=== PATIENT | female | born 2000 | race Caucasian/White ===

== ENCOUNTER 2023-08-23 09:21 | Emergency (ER) | payer OTHER ==
[~2023-08-23] VITALS: Ht 165.1 cm; Wt 63.6 kg
[2023-08-23 09:41] VITALS: TEMP 98.6
[2023-08-23] MEDS ORDERED: IBUP-1492 PO (13:22)
[2023-08-23 13:36] VITALS: BP 98/65; PULSE 62; RESP 16
== END 2023-08-23 13:40 | disposition home or self-care (01) ==
LOC: EMS 09:21
DX: S93.402A Sprain of unspecified ligament of left ankle, initial encounter (principal); X58.XXXA Exposure to other specified factors, initial encounter; Y93.89 Activity, other specified; Y92.89 Other specified places as the place of occurrence of the external cause; Y99.8 Other external cause status
CPT/HCPCS: 29515; 99283

== ENCOUNTER 2024-06-05 12:36 | Emergency (ER) | payer BC, OTHER ==
[~2024-06-05] VITALS: Ht 162.6 cm; Wt 63.6 kg
[~2024-06-05 12:36] MED LIST: IBUP-1492 PO
[2024-06-05 12:56] VITALS: BP 121/64; PULSE 92; RESP 16; TEMP 99.2; O2SAT 100
[2024-06-05 13:44] LABS: COVID AG,FIA SOURCE NASAL SWAB
[2024-06-05 14:35] LABS: SARS-COV2 (COVID) ANTIGEN,FIA Positive (Negative)
== END 2024-06-05 15:24 | disposition home or self-care (01) ==
LOC: EMS 12:36
DX: U07.1 COVID-19 (principal)
CPT/HCPCS: 99283

== ENCOUNTER 2025-01-14 20:08 | Emergency (ER) | payer BC, OTHER ==
[~2025-01-14] VITALS: Ht 165.1 cm; Wt 67.3 kg
[2025-01-14 20:12] VITALS: TEMP 98.4
[2025-01-14 20:35] LABS: BASOPHILS % (AUTO) 0.5 % (0.0-2.0); EOSINOPHILS % (AUTO) 1.4 % (1.0-6.0); HEMATOCRIT 41.2 % (36-46); HEMOGLOBIN 13.9 g/dL (12.0-16.0); LYMPHOCYTES # (AUTO) 2.7 K/uL (1.0-4.8); LYMPHOCYTES % (AUTO) 36.5 % (22.0-44.0); MEAN CORPUSCULAR HGB CONC 33.9 G/dL (31.0-37.0); MEAN CORPUSCULAR VOLUME 94 fL (80-100); MONOCYTES # (AUTO) 0.4 K/uL (0.1-1.0); NEUTROPHILS # (AUTO) 4.1 K/uL (1.8-7.7); NEUTROPHILS % (AUTO) 56.6 % (40.0-70.0); PLATELET COUNT (AUTO) 141 K/uL (150-450); RED BLOOD CELL COUNT(AUTO) 4.36 MIL/uL (4.00-5.20); RED CELL DISTRIBUTION WIDTH 12.8 % (11.5-14.5); WHITE BLOOD COUNT (AUTO) 7.3 K/uL (4.5-11.0)
[2025-01-14 20:39] LABS: ANION GAP 7 mmol/L (8-16); CALCIUM, TOTAL 8.8 mg/dL (8.8-10.5); CARBON DIOXIDE 28 mmol/L (22-29); CHLORIDE 101 mmol/L (98-107); CREATININE 0.58 mg/dL (0.60-1.30); GLOMERULAR FILTR. RATE CALC > 60 mL/min (>60); GLUCOSE,RANDOM 81 mg/dL (70-110); SODIUM SERUM 136 mmol/L (136-145); UREA NITROGEN, BLOOD 13 mg/dL (7-18)
[2025-01-14] MEDS ORDERED: SODIUM CHLORIDE 0.9% 1,000 ML IV ONE (21:15)
[2025-01-14 22:39] LABS: HCG,QUANTITATIVE 548 mIU/mL (0-6)
[2025-01-14 23:53] LABS: APPEARANCE,URINE HAZY (CLEAR); BILIRUBIN,URINE NEGATIVE (NEGATIVE); COLOR,URINE LIGHT YELLOW (YELLOW); GLUCOSE, URINE (UA) NEGATIVE (NEGATIVE); KETONES,URINE TRACE mg/dL (NEGATIVE); LEUKOCYTE ESTERASE ,URINE SMALL (NEGATIVE); NITRATE,URINE NEGATIVE (NEGATIVE); OCCULT BLOOD,URINE MODERATE (NEGATIVE); PH,URINE 5.5 (5.0-8.0); PROTEIN,URINE NEGATIVE (NEGATIVE); UROBILINOGEN,URINE <=1.0 mg/dL (<=1.0)
[2025-01-15 00:03] LABS: BACTERIA,URINE Few /HPF (None Seen); SQUAMOUS EPITHELIAL CELL,UR Moderate /LPF (None Seen); WBC,URINE 0-2 /HPF (0-5)
[2025-01-15] MEDS ORDERED: ACET-3385 PO (00:16)
[2025-01-15] MEDS ORDERED: CEPH-558 PO (00:16)
[2025-01-15] MEDS: CEPHALEXIN MONOHYDRATE 500 MG CAPSULE PO ONE (00:21)
[2025-01-15 00:26] VITALS: BP 121/78; PULSE 76; RESP 16; O2SAT 100
== END 2025-01-15 00:28 | disposition home or self-care (01) ==
LOC: EMS 20:08
DX: O26.891 Other specified pregnancy related conditions, first trimester (principal); R10.2 Pelvic and perineal pain; R82.71 Bacteriuria; Z3A.01 Less than 8 weeks gestation of pregnancy
CPT/HCPCS: 76801; 80048; 81001; 84702; 84703; 85025; 86901; 99284